=== PATIENT | female | born 1975 | race African-American/Black ===

== ENCOUNTER 2016-12-15 17:24 | Emergency (ER) | payer BC ==
[2016-12-15 18:03] VITALS: BP 138/79
--- NOTE | 2016-12-15 19:49 | UC ---
UC General HPI - HPI Summary HPI Summary: HISTORY OF RHEUMATOID ARTHRITIS. ON BIOTICS. HAS SPECIALIST IN [place] AND HERE, ALSO HAS PRIMARY CARE HERE. ACHEY PAIN RADIATES DOWN BILATERAL SHOULDERS, NO TRAUMA. HAS HAD THIS CONCERN BEFORE. WHEN THIS OCCURS AND CANNOT BE MANAGED BY PRESCRIBED MEDICATIONS, USUALLY TAKES STEROID PACK. UNABLE TO GET [facility] OF SPECIALISTS (THEY SAID THEY WOULD CALL BACK, BUT HAVENT) WOULD LIKE SHORT TERM STEROID SUPPLY. - History of Current Complaint Chief Complaint: UCGeneralIllness Stated Complaint: ARTHRITIC PAIN AND STIFFNESS Time Seen by Provider: 12/15/16 18:41 Hx Obtained From: Patient Onset/Duration: Gradual Onset, Lasting Weeks, Still Present Onset Severity: Mild Current Severity: Mild Pain Intensity: 3 Associated Signs & Symptoms: Positive: Other - BILATERAL SHOULDER AND NECK STIFFNESS AND PAIN. Negative: Back Pain, Cough - Allergy/Home Medications Allergies/Adverse Reactions: Allergies Allergy/AdvReac Type Severity Reaction Status Date / Time Iodine Allergy See Comment Verified 12/15/16 18:04 Latex Allergy See Comment Verified 12/15/16 18:04 Peanut Oil Allergy Anaphylatic Verified 12/15/16 18:04 Shock Sulfa Antibiotics Allergy See Comment Verified 12/15/16 18:04 Home Medications: Home Medications Aqohcpans-Qqmtkibrrmg-Jlmqwtv [Glucosamine Complex] 1 tab PO 12/15/16 [History] PMH/Surg Hx/FS Hx/Imm Hx Previously Healthy: Yes Endocrine History Of: Reports: Thyroid Disease - hyperthyroid Denies: Diabetes Cardiovascular History Of: Denies: Cardiac Disorders, Hypertension Respiratory History Of: Reports: Asthma Denies: COPD GI/ History Of: Denies: Ulcer - Surgical History Surgical History: Yes Surgery Procedure, Year, and Place: laparoscopy - Family History Known Family History: Positive: Cardiac Disease - Social History Occupation: Employed Full-time Lives: With Family Alcohol Use: Rare Substance Use Type: None Smoking Status (MU): Never Smoked Tobacco - Immunization History Most Recent Influenza Vaccination: fall 2015 Review of Systems Constitutional: Negative Skin: Negative Eyes: Negative ENT: Negative Respiratory: Negative Cardiovascular: Negative Gastrointestinal: Negative Genitourinary: Negative Motor: Negative Neurovascular: Negative Musculoskeletal: Arthralgia, Myalgia Neurological: Negative Psychological: Negative All Other Systems Reviewed And Are Negative: Yes Physical Exam Triage Information Reviewed: Yes Appearance: Well-Appearing, No Pain Distress, Well-Nourished Vital Signs: Initial Vital Signs Temp 98.8 F 12/15/16 17:57 Pulse 76 12/15/16 17:57 Resp 16 12/15/16 17:57 BP 138/79 12/15/16 17:57 Pulse Ox 100 12/15/16 17:57 Vital Signs Reviewed: Yes Eye Exam: Normal Eyes: Positive: Conjunctiva Clear ENT Exam: Normal ENT: Positive: Normal ENT inspection, Hearing grossly normal, Pharynx normal, TMs normal Dental Exam: Normal Neck exam: Normal Neck: Positive: Supple, Nontender, No Lymphadenopathy. Negative: Nuchal Rigidity, Tenderness @, Enlarged Nodes @ Respiratory Exam: Normal Respiratory: Positive: Chest non-tender, Lungs clear, Normal breath sounds, No respiratory distress, No accessory muscle use Cardiovascular Exam: Normal Cardiovascular: Positive: RRR, No Murmur, Pulses Normal, Brisk Capillary Refill Abdominal Exam: Normal Musculoskeletal Exam: Normal Musculoskeletal: Positive: Strength Intact, ROM Intact, No Edema Neurological Exam: Normal Psychological Exam: Normal Psychological: Positive: Normal Response To Family Skin Exam: Normal Course/Dx - Differential Dx - Multi-Symptom Differential Diagnoses: Metabolic Abnormality, Sepsis, Other - RA Provider Diagnoses: ACUTE ON CHRONIC RHEUMATOID ARTHRITIS FLARE UP/PAIN Discharge - Discharge Plan Condition: Stable Disposition: HOME Prescriptions: predniSONE TAB* [Deltasone TAB*] 10 mg PO DAILY #28 tab Patient Education Materials: Rheumatoid Arthritis (ED), Autoimmune Disease (ED) Referrals: Imer Mcintosh MD [Primary Care Provider] -
== END 2016-12-15 19:21 | disposition home or self-care (01) ==
LOC: UCEAST 17:24
DX: M06.9 Rheumatoid arthritis, unspecified (principal); M43.6 Torticollis; Z88.2 Allergy status to sulfonamides
CPT/HCPCS: 99212; G0463

== ENCOUNTER 2017-06-12 16:03 | Emergency (ER) | payer BC, OTHER ==
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
[2017-06-12 16:27] VITALS: BP 149/94
== END 2017-06-12 16:28 | disposition home or self-care (01) ==
LOC: UCEAST 16:03
DX: R10.32 Left lower quadrant pain (principal); E05.90 Thyrotoxicosis, unspecified without thyrotoxic crisis or storm; J45.909 Unspecified asthma, uncomplicated; M06.9 Rheumatoid arthritis, unspecified; Z88.2 Allergy status to sulfonamides
CPT/HCPCS: 99211; G0463

== ENCOUNTER 2017-06-12 16:49 | Emergency (ER) | payer SELFPAY ==
[2017-06-12 19:53] LABS: Urine Bacteria Absent (Absent)
[2017-06-12 20:01] LABS: Urine Bilirubin Negative (Negative); Urine Glucose Negative (Negative); Urine Nitrite Negative (Negative)
[2017-06-12 20:29] LABS: Hematocrit 32 % (35-47); Hemoglobin 10.6 g/dl (12.0-16.0); Mean Corpuscular HGB Conc 33 g/dl (31-36); Mean Corpuscular Hemoglobin 27 pg (27-31); Mean Corpuscular Volume 81 fL (80-97); Mean Platelet Volume 9 um3 (7.4-10.4); Red Blood Count 3.95 10^6/ul (4.0-5.4); Red Cell Distribution Width 14 % (10.5-15); White Blood Count 5.6 10^3/ul (3.5-10.8)
[2017-06-12 20:55] LABS: Albumin 3.7 g/dL (3.2-5.2); BUN/Creatinine Ratio 12.8 (8-20); Calcium 8.9 mg/dL (8.6-10.3); EGFR African American 94.5 (>60); EGFR Non-African American 73.5 (>60); Globulin 3.4 g/dL (2-4); Potassium 3.3 mmol/L (3.5-5.0); Total Bilirubin 0.3 mg/dL (0.2-1.0); Total Protein 7.1 g/dL (6.4-8.9)
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
[2017-06-12] MEDS ORDERED: Diclofenac Sodium EC TAB* 25 MG PO ONE (22:06)
[2017-06-12 22:49] VITALS: BP 122/78
== END 2017-06-12 22:49 | disposition home or self-care (01) ==
LOC: ED 16:49
DX: R10.32 Left lower quadrant pain (principal)
CPT/HCPCS: 36415; 74176; 80053; 81003; 85025; 99282; A9270-GY

== ENCOUNTER 2018-01-06 19:49 | Emergency (ER) | payer BC, OTHER ==
[2018-01-06 19:59] VITALS: BP 142/103
--- NOTE | 2018-01-06 20:13 | UC ---
Lower Extremity/Ankle HPI - HPI Summary HPI Summary: Patient tripped down the stairs and twisted ankle under neath her body. pain not improving over the last 2 days, mild swlling under the lateral - History of Current Complaint Chief Complaint: UCLowerExtremity Stated Complaint: ANKLE INJURY Time Seen by Provider: 01/06/18 20:07 Hx Obtained From: Patient Hx Last Menstrual Period: 3 wks ago ?: No Onset/Duration: Sudden Onset, Lasting Days Severity Initially: Moderate Severity Currently: Moderate Pain Intensity: 6 Aggravating Factor(s): Standing, Ambulation Alleviating Factor(s): Elevation, Ice Able to Bear Weight: No - Allergies/Home Medications Allergies/Adverse Reactions: Allergies Allergy/AdvReac Type Severity Reaction Status Date / Time iodine Allergy Anaphylatic Verified 01/06/18 20:00 Shock latex Allergy Itching Verified 01/06/18 20:00 peanut Allergy Anaphylatic Verified 01/06/18 20:00 Shock peanut oil Allergy Anaphylatic Verified 01/06/18 20:00 Shock Sulfa (Sulfonamide Allergy Facial Verified 01/06/18 20:01 Antibiotics) Redness/Flushing Home Medications: Home Medications Hemagenics 1 tab PO DAILY 01/06/18 [History Confirmed 01/06/18] PMH/Surg Hx/FS Hx/Imm Hx Previously Healthy: Yes - Surgical History Surgical History: Yes Surgery Procedure, Year, and Place: laparoscopy - Family History Known Family History: Positive: Cardiac Disease - Social History Alcohol Use: Rare Substance Use Type: None Smoking Status (MU): Never Smoked Tobacco - Immunization History Most Recent Influenza Vaccination: fall 2015 Review of Systems Constitutional: Negative Skin: Negative Eyes: Negative ENT: Negative Respiratory: Negative Cardiovascular: Negative Gastrointestinal: Negative Genitourinary: Negative Motor: Negative Neurovascular: Negative Musculoskeletal: Arthralgia, Decreased ROM, Edema, Myalgia Neurological: Negative Psychological: Negative Is Patient Immunocompromised?: No All Other Systems Reviewed And Are Negative: Yes Physical Exam Triage Information Reviewed: Yes Appearance: Well-Appearing, Well-Nourished, Pain Distress Vital Signs: Initial Vital Signs Temp 98.6 F 01/06/18 19:55 Pulse 76 01/06/18 19:55 Resp 18 01/06/18 19:55 BP 142/103 01/06/18 19:55 Pulse Ox 100 01/06/18 19:55 Vital Signs Reviewed: Yes Eye Exam: Normal ENT Exam: Normal Dental Exam: Normal Neck exam: Normal Respiratory Exam: Normal Cardiovascular Exam: Normal Abdominal Exam: Normal Musculoskeletal: Positive: Strength Limited @ - limping gait, ROM Limited @ - in inv and eversion, Edema @ - under the medial maleolus Neurological Exam: Normal Psychological Exam: Normal Skin Exam: Normal Lower Extremity Course/Dx - Course Course Of Treatment: hx obtained, exam performed ,meds reviewed, xray obtained neg for fracture, gel spint and asia applied. - Differential Dx/Diagnosis Differential Diagnosis/HQI/PQRI: Contusion, Fracture (Closed), Sprain, Strain Provider Diagnoses: medial left ankle sprain Discharge - Sign-Out/Discharge Documenting (check all that apply): Discharge - Discharge Plan Condition: Stable Disposition: HOME Patient Education Materials: Ankle Sprain (ED) Referrals: Imer Mcinotsh MD [Primary Care Provider] - Additional Instructions: 1. use the asia wrap and splint for swelling reduction and support. 2. elevate as much as possible. 3. work back into activity as tolerated. - Billing Disposition and Condition Condition: STABLE Disposition: HOME
--- NOTE | 2018-01-06 20:34 | RAD ---
INDICATION: Medial ankle pain since an injury 2 nights earlier COMPARISON: None. TECHNIQUE: 3 views of the left ankle were obtained. FINDINGS: The well corticated bones exhibit normal alignment. Joint spaces appear maintained. No fracture is seen. IMPRESSION: Normal ankle radiograph. If the patient's symptoms persist, follow-up imaging is recommended.
== END 2018-01-06 20:50 | disposition home or self-care (01) ==
LOC: UCEAST 19:49
DX: S93.402A Sprain of unspecified ligament of left ankle, initial encounter (principal); X50.1XXA Overexertion from prolonged static or awkward postures, initial encounter; Y93.89 Activity, other specified; Y92.9 Unspecified place or not applicable; Z88.2 Allergy status to sulfonamides
CPT/HCPCS: 99212; G0463

== ENCOUNTER 2018-01-16 16:00 | Emergency (ER) | payer BC ==
[2018-01-16 16:21] VITALS: BP 123/80
[2018-01-16] MEDS ORDERED: Ketorolac INJ* 60 MG/2 ML VIAL IM ONE (16:55)
--- NOTE | 2018-01-16 17:03 | UC ---
Upper Extremity HPI - HPI Summary HPI Summary: 42 BF h/o RA with flare-up c/o severe right hand swelling and pain x few days in spite of taking chronic prednisone and diclofenac for flare-ups - History of Current Complaint Chief Complaint: UCGeneralIllness Stated Complaint: HAND AND FOOT SWELLING, AND BACK PAIN Time Seen by Provider: 01/16/18 16:44 Hx Obtained From: Patient Hx From Patient Unobtainable Due To: Extremis Hx Last Menstrual Period: 3 wks ago Onset/Duration: Lasting Days, Still Present Severity Initially: Moderate Severity Currently: Severe Pain Intensity: 8 Character: Sharp Aggravating Factor(s): Movement Alleviating Factor(s): Nothing Associated Signs And Symptoms: Positive: Negative - Allergies/Home Medications Allergies/Adverse Reactions: Allergies Allergy/AdvReac Type Severity Reaction Status Date / Time iodine Allergy Anaphylatic Verified 01/16/18 16:21 Shock latex Allergy Itching Verified 01/16/18 16:21 peanut Allergy Anaphylatic Verified 01/16/18 16:21 Shock peanut oil Allergy Anaphylatic Verified 01/16/18 16:21 Shock Sulfa (Sulfonamide Allergy Facial Verified 01/16/18 16:21 Antibiotics) Redness/Flushing Home Medications: Home Medications Hydroxychloroquine TAB* [Plaquenil TAB*] 200 mg PO DAILY 01/16/18 [History Confirmed 01/16/18] [place]-3 Fatty Acids/Fish Oil [Fish Oil 1,000 mg Capsule] 1 each PO 01/16/18 [ History] Vit 108/Iron/Folic AC [ One Tablet] 1 each PO 01/16/18 [History ] PMH/Surg Hx/FS Hx/Imm Hx Previously Healthy: Yes - Surgical History Surgical History: Yes Surgery Procedure, Year, and Place: laparoscopy - Family History Known Family History: Positive: Cardiac Disease - Social History Alcohol Use: Occasionally Substance Use Type: None Substance Use Comment - Amount & Last Used: cbd oil Smoking Status (MU): Never Smoked Tobacco - Immunization History Most Recent Influenza Vaccination: fall 2015 Review of Systems Constitutional: Negative Skin: Negative Eyes: Negative ENT: Negative Respiratory: Negative Cardiovascular: Negative Gastrointestinal: Negative Genitourinary: Negative Motor: Negative Neurovascular: Negative Musculoskeletal: Negative, Decreased ROM, Edema - right hand Neurological: Negative Psychological: Negative All Other Systems Reviewed And Are Negative: Yes Physical Exam Triage Information Reviewed: Yes Appearance: Pain Distress Vital Signs: Initial Vital Signs Temp 36.1 C 01/16/18 16:15 Pulse 72 01/16/18 16:15 Resp 18 01/16/18 16:15 BP 123/80 01/16/18 16:15 Pulse Ox 100 01/16/18 16:15 Vital Signs Reviewed: Yes Eye Exam: Normal ENT: Positive: Normal ENT inspection Respiratory Exam: Normal Respiratory: Positive: Lungs clear Musculoskeletal Exam: Normal Musculoskeletal: Positive: Strength Limited @, ROM Limited @, Edema @ - right hand swelling extending to fingers with restricted ROM due to swelling Upper Extremity Course/Dx - Course Course Of Treatment: severe RA flare-up refractory to prednisone - Troadol IM and Zanaflex at bedtime - Differential Dx/Diagnosis Differential Diagnosis/HQI/PQRI: Arthritis Provider Diagnoses: RA flare-up. right hand swelling Discharge - Sign-Out/Discharge Documenting (check all that apply): Discharge/Admit/Transfer - Discharge Plan Condition: Stable Disposition: HOME Prescriptions: Tizanidine HCl 4 mg PO BEDTIME 10 Days #10 capsule Patient Education Materials: Rheumatoid Arthritis (ED) Referrals: Imer Mcintosh MD [Primary Care Provider] - Additional Instructions: follow up with accounts payable or receivable clerk - Billing Disposition and Condition Condition: STABLE Disposition: HOME
== END 2018-01-16 17:59 | disposition home or self-care (01) ==
LOC: UCEAST 16:00
DX: M06.9 Rheumatoid arthritis, unspecified (principal); M79.89 Other specified soft tissue disorders; Z88.2 Allergy status to sulfonamides; Z88.3 Allergy status to other anti-infective agents; Z91.040 Latex allergy status; Z91.010 Allergy to peanuts
CPT/HCPCS: 96372; 99212; G0463; J1885

== ENCOUNTER 2018-01-19 08:29 | Emergency (ER) | payer BC ==
[2018-01-19 08:36] VITALS: BP 144/105
[2018-01-19] MEDS ORDERED: predniSONE TAB* 20 MG PO ONE (09:14)
--- NOTE | 2018-01-19 09:20 | UC ---
Hand/Wrist HPI - HPI Summary HPI Summary: Patient has RA. has been on low dose prednisone for many months. decided to stop prednisone abruptly 5 days ago, and joint pain has become increasingly worse. now R hand swollen, warm and painful. has used prednisone taper in past for RA exacerbation - History Of Current Complaint Chief Complaint: UCGeneralIllness Stated Complaint: SWELLING IN HANDS Time Seen by Provider: 01/19/18 08:47 Hx Obtained From: Patient Hx Last Menstrual Period: 12/23/17 ?: No Onset/Duration: Gradual Onset Severity Initially: Mild Severity Currently: Moderate Pain Intensity: 7 Character Of Pain: Throbbing, Stiffness, Burning Aggravating Factor(s): Movement Alleviating Factor(s): Nothing Associated Signs And Symptoms: Positive: Swelling, Redness Related History: Other: - RA - Allergies/Home Medications Allergies/Adverse Reactions: Allergies Allergy/AdvReac Type Severity Reaction Status Date / Time iodine Allergy Anaphylatic Verified 01/19/18 08:40 Shock latex Allergy Itching Verified 01/19/18 08:40 peanut Allergy Anaphylatic Verified 01/19/18 08:40 Shock peanut oil Allergy Anaphylatic Verified 01/19/18 08:40 Shock Sulfa (Sulfonamide Allergy Facial Verified 01/19/18 08:40 Antibiotics) Redness/Flushing PMH/Surg Hx/FS Hx/Imm Hx Previously Healthy: Yes Respiratory History: Other - seasonal allergies Other Respiratory History: allergies - Surgical History Surgical History: Yes Surgery Procedure, Year, and Place: laparoscopy - Family History Known Family History: Positive: Cardiac Disease - Social History Alcohol Use: Occasionally Substance Use Type: None Substance Use Comment - Amount & Last Used: cbd oil Smoking Status (MU): Never Smoked Tobacco - Immunization History Most Recent Influenza Vaccination: fall 2015 Review of Systems Constitutional: Fatigue Skin: Negative Respiratory: Negative Cardiovascular: Negative Musculoskeletal: Arthralgia Neurological: Negative Psychological: Negative All Other Systems Reviewed And Are Negative: Yes Physical Exam Triage Information Reviewed: Yes Appearance: Well-Appearing, Well-Nourished, Other: - appears uncomfortable, holding R hand still, repositions frequently Vital Signs: Initial Vital Signs Temp 98 F 01/19/18 08:33 Pulse 83 01/19/18 08:33 Resp 16 01/19/18 08:33 BP 144/105 01/19/18 08:33 Pulse Ox 100 01/19/18 08:33 Vital Signs Reviewed: Yes Neck exam: Normal Neck: Positive: Supple Respiratory Exam: Normal Cardiovascular Exam: Normal Musculoskeletal: Positive: Other: - moderate swelling, redness, warmth R MCP joints, mild swelling L MCP joints Neurological Exam: Normal Neurological: Positive: Alert Psychological Exam: Normal Hand/Wrist Course/Dx - Differential Dx/Diagnosis Differential Diagnosis/HQI/PQRI: Infection, Other - RA Provider Diagnoses: rheumatoid arthritis exacerbation Discharge - Sign-Out/Discharge Documenting (check all that apply): Discharge/Admit/Transfer - Discharge Plan Condition: Stable Disposition: HOME Prescriptions: predniSONE TAB* [Deltasone TAB*] 10 mg PO DAILY #40 tab Patient Education Materials: Rheumatoid Arthritis (ED) Referrals: Imer Mcintosh MD [Primary Care Provider] - 2 Days (recheck B/P) Additional Instructions: take prednisone as prescribed with food start calcium supplement: [id number] mg a day in divided doses (with food if possible) rest and drink plenty of fluids - Billing Disposition and Condition Condition: STABLE Disposition: HOME
== END 2018-01-19 09:30 | disposition home or self-care (01) ==
LOC: UCEAST 08:29
DX: M06.9 Rheumatoid arthritis, unspecified (principal); R53.83 Other fatigue; Z88.2 Allergy status to sulfonamides; Z88.3 Allergy status to other anti-infective agents; Z91.040 Latex allergy status
CPT/HCPCS: 99211; G0463; J7512

== ENCOUNTER 2018-11-04 15:12 | Emergency (ER) | payer BC ==
[2018-11-04] MEDS ORDERED: NS 0.9% 1000 ML** 1,000 ML IV ONE (16:15)
--- NOTE | 2018-11-04 16:17 | ED ---
Influenza-Like Illness - HPI Summary HPI Summary: 42 year old female presents with flulike symptoms for the past 4 days. She admits to fever and chills. She states she has occasional chest pain or shortness breath. She states she feels winded. She denies any cough. She gets a sore throat. She has decreased appetite. She denies any bowel pain. No nausea vomiting diarrhea. She admits to generalized muscle aches. She also admits to back pain. No urinary symptoms. No headache. States she has a history of dental infections. She denies any swelling to her face. She has not followed with dentist. Has history of RA and has not been able to take her medications due to her symptoms. - History of Current Complaint Chief Complaint: EDFluSymptoms Time Seen by Provider: 11/04/18 16:01 - Allergy/Home Medications Allergies/Adverse Reactions: Allergies Allergy/AdvReac Type Severity Reaction Status Date / Time iodine Allergy Anaphylatic Verified 11/04/18 15:27 Shock latex Allergy Itching Verified 11/04/18 15:27 peanut Allergy Anaphylatic Verified 11/04/18 15:27 Shock peanut oil Allergy Anaphylatic Verified 11/04/18 15:27 Shock Sulfa (Sulfonamide Allergy Facial Verified 11/04/18 15:27 Antibiotics) Redness/Flushing PMH/Surg Hx/FS Hx/Imm Hx Endocrine/Hematology History: Reports: Hx Thyroid Disease - hyperthyroid Denies: Hx Diabetes Cardiovascular History: Denies: Hx Hypertension Respiratory History: Reports: Hx Asthma Denies: Hx Chronic Obstructive Pulmonary Disease (COPD) GI History: Denies: Hx Ulcer Neurological History: Reports: Other Neuro Impairments/Disorders - RHEUMATOID ARTHIRITIS - Surgical History Surgery Procedure, Year, and Place: laparoscopy Infectious Disease History: No Infectious Disease History: Denies: Hx Clostridium Difficile, Hx Hepatitis, Hx Human Immunodeficiency Virus (HIV), Hx of Known/Suspected MRSA, Hx Shingles, Hx Tuberculosis, Hx Known/ Suspected VRE, Hx Known/Suspected VRSA, History Other Infectious Disease, Traveled Outside the [place] in Last 30 Days - Family History Known Family History: Positive: Cardiac Disease - Social History Alcohol Use: Occasionally Substance Use Type: Reports: Other Substance Use Comment - Amount & Last Used: cbd oil Smoking Status (MU): Never Smoked Tobacco Review of Systems Positive: Fever, Chills Positive: Dental Pain, Sore Throat, Nasal Discharge Positive: Chest Pain Positive: Shortness Of Breath. Negative: Cough Negative: Abdominal Pain Positive: Myalgia - back pain All Other Systems Reviewed And Are Negative: Yes Physical Exam Triage Information Reviewed: Yes Vital Signs On Initial Exam: Initial Vitals Temp Pulse Resp BP Pulse Ox 98.1 F 99 16 129/108 99 11/04/18 15:23 11/04/18 15:23 11/04/18 15:23 11/04/18 15:23 11/04/18 15:23 Vital Signs Reviewed: Yes Appearance: Positive: Well-Appearing Skin: Positive: Warm, Dry Head/Face: Positive: Normal Head/Face Inspection Eyes: Positive: Normal, EOMI, JOYCE, Conjunctiva Clear ENT: Positive: Normal ENT inspection, Pharyngeal erythema, TMs normal, Uvula midline. Negative: Trismus, Muffled voice Dental: Positive: Gross Decay/Caries @ - throughout Neck: Positive: Supple, Nontender, No Lymphadenopathy Respiratory/Lung Sounds: Positive: Clear to Auscultation, Breath Sounds Present Cardiovascular: Positive: Normal, RRR Abdomen Description: Positive: Nontender, Soft Bowel Sounds: Positive: Present Musculoskeletal: Positive: Normal Neurological: Positive: Normal Psychiatric: Positive: Normal Diagnostics - Vital Signs Vital Signs Temp Pulse Resp BP Pulse Ox 11/04/18 15:23 98.1 F 99 16 129/108 99 - Laboratory Result Diagrams: 11/04/18 16:20 11/04/18 16:20 Lab Statement: Any lab studies that have been ordered have been reviewed, and results considered in the medical decision making process. - Radiology chest Radiology Interpretation Completed By: Radiologist Summary of Radiographic Findings: IMPRESSION: NO ACTIVE CARDIOPULMONARY DISEASE. - EKG No standard instances Cardiac Rate: NL EKG Rhythm: Sinus Rhythm Summary of EKG Findings: sinus rhythm Re-Evaluation - Re-Evaluation First Eval Re-Evaluation Time: 17:26 Change: Improved Comment: feeling better after fluids Flu Symptom Course/Dx - Course Course Of Treatment: 42 year old female presents with flulike symptoms for the past 4 days. She admits to fever and chills. She states she has occasional chest pain or shortness breath. She states she feels winded. She denies any cough. She gets a sore throat. She has decreased appetite. She denies any bowel pain. No nausea vomiting diarrhea. She admits to generalized muscle aches. She also admits to back pain. No urinary symptoms. No headache. States she has a history of dental infections. She denies any swelling to her face. She has not followed with dentist. Has history of RA and has not been able to take her medications due to her symptoms. On exam lungs clear to auscultation. Dental caries noted with no abscess noted or sign of infection. abd soft nontender. wbc normal. influenza a positive. wbc normal. electrolytes normal. discussed should follow up with dentist about teeth but no signs of infection at the moment. gave fluids and feeling better. is out of range for tamiflu. told to continue tyenlol or ibuprofen. patient understand and agrees with plan. - Diagnoses Differential Diagnosis/HQI/PQRI: Positive: Influenza, Pneumonia, Upper Respiratory Infection Provider Diagnoses: Influenza, Dental caries Discharge - Sign-Out/Discharge Documenting (check all that apply): Patient Departure Patient Received Moderate/Deep Sedation with Procedure: No - Discharge Plan Condition: Good Disposition: HOME Patient Education Materials: Influenza (ED) Forms: *Work Release Referrals: Imer Mcintosh MD [Primary Care Provider] - Additional Instructions: Take Tylenol and ibuprofen for muscle aches and fever every 6 hours Saline rinse can be used multiple times a day for nasal congestion Drink plenty of fluids Return to ED if develop any new or worsening symptoms - Billing Disposition and Condition Condition: GOOD Disposition: Home
[2018-11-04 16:29] LABS: Influenza A Molecular POSITIVE (Negative)
[2018-11-04 16:29] LABS: ABS Basophils 0 10^3/ul (0-0.2); ABS Eosinophils 0.1 10^3/ul (0-0.6); ABS Monocytes 0.7 10^3/ul (0-0.8); ABS Neutrophils 2.7 10^3/ul (1.5-7.7); ABS Nucleated RBC 0 10^3/ul; Eosinophil % 1.3 %; Hematocrit 39 % (35-47); Hemoglobin 12.9 g/dl (12.0-16.0); Lymphocyte % 22.3 %; Mean Corpuscular HGB Conc 33 g/dl (31-36); Mean Corpuscular Hemoglobin 28 pg (27-31); Mean Corpuscular Volume 83 fL (80-97); Mean Platelet Volume 8.6 fL (7.4-10.4); Nucleated Red Blood Cells % 0.2; Platelet Count 183 10^3/ul (150-450); Red Blood Count 4.68 10^6/ul (4.00-5.40); Red Cell Distribution Width 14 % (10.5-15); White Blood Count 4.6 10^3/ul (3.5-10.8)
[2018-11-04 16:56] LABS: HCG Pregnancy < 0.60 mIU/mL
[2018-11-04 17:00] LABS: ALT 8 U/L (7-52); AST 14 U/L (13-39); Albumin 3.9 g/dL (3.2-5.2); Albumin/Globulin Ratio 1.3 (1-3); Alkaline Phosphatase 35 U/L (34-104); Anion Gap 7 mmol/L (2-11); Blood Urea Nitrogen 12 mg/dL (6-24); CO2 Carbon Dioxide 27 mmol/L (22-32); Calcium 9.1 mg/dL (8.6-10.3); Chloride 102 mmol/L (101-111); EGFR African American 81.8 (>60); EGFR Non-African American 67.6 (>60); Globulin 2.9 g/dL (2-4); Glucose 82 mg/dL (70-100); Potassium 3.6 mmol/L (3.5-5.0); Sodium 136 mmol/L (135-145); Total Protein 6.8 g/dL (6.4-8.9)
[2018-11-04 17:25] VITALS: BP 132/84
[2018-11-04 17:50] LABS: Urine Appearance Clear; Urine Bilirubin Negative (Negative); Urine Blood Negative (Negative); Urine Color Yellow; Urine Glucose Negative (Negative); Urine Ketones Trace (Negative); Urine Nitrite Negative (Negative); Urine Protein Negative (Negative); Urine Specific Gravity 1.008 (1.010-1.030); Urine Urobilinogen Negative (Negative)
== END 2018-11-04 18:15 | disposition home or self-care (01) ==
LOC: ED 15:12
DX: J10.1 Influenza due to other identified influenza virus with other respiratory manifestations (principal); K02.9 Dental caries, unspecified; Z88.2 Allergy status to sulfonamides; Z88.3 Allergy status to other anti-infective agents; Z91.040 Latex allergy status; Z91.010 Allergy to peanuts
CPT/HCPCS: 36415; 71046; 80053; 81003; 84484; 84702; 85025; 93005; 99283

== ENCOUNTER 2018-12-06 08:54 | Emergency (ER) | payer BC ==
[2018-12-06] MEDS ORDERED: Hydrocortisone 1% CREAM* 30 GM TUBE TOPICAL ONE (09:11)
[2018-12-06] MEDS ORDERED: diPHENhydraMINE PO* 50 MG PO ONE (09:14)
[2018-12-06] MEDS ORDERED: diPHENhydraMINE PO* 50 MG ONE (09:16)
[2018-12-06 09:18] VITALS: BP 141/95
--- NOTE | 2018-12-06 10:40 | ED ---
Allergic Reaction/Systemic - HPI Summary HPI Summary: Patient is a 42-year-old female presenting to the ED with possible allergic reaction. Patient states she had a facial wax yesterday where the wax was too hot. This injured her face and she subsequently put a cream on it which a friend had given her. The cream had sulfa and patient states she is allergic to sulfa. She noted to some lip swelling and facial redness. Denies any throat closing, dysphagia, odynophagia, SOB or CP. She states she placed this on her face this morning, and the reaction happened immediately. She states this has not been worsening over the past several hours. - History of Current Complaint Chief Complaint: EDAllergicReaction Time Seen by Provider: 12/06/18 09:04 Hx Obtained From: Patient Hx Last Menstrual Period: 12/23/17 Onset/Duration: Sudden Onset Timing: Constant Severity Initially: Mild Severity Currently: Mild Pain Intensity: 3 Pain Scale Used: 0-10 Numeric Location: Discrete @ - Face Character: Swelling Alleviating Factor(s): Heat Associated Signs And Symptoms: Positive: Negative. Negative: Abdominal Pain, Chest Pain, Cough Wheezing, Hoarseness, Lightheadedness, Nausea, Syncope, Throat Tightening - Related Hx Possible Reaction To: Medications - Allergies/Home Medications Allergies/Adverse Reactions: Allergies Allergy/AdvReac Type Severity Reaction Status Date / Time iodine Allergy Anaphylatic Verified 12/06/18 09:00 Shock latex Allergy Itching Verified 12/06/18 09:00 peanut Allergy Anaphylatic Verified 12/06/18 09:00 Shock peanut oil Allergy Anaphylatic Verified 12/06/18 09:00 Shock Sulfa (Sulfonamide Allergy Facial Verified 12/06/18 09:00 Antibiotics) Redness/Flushing PMH/Surg Hx/FS Hx/Imm Hx Previously Healthy: Yes Endocrine/Hematology History: Reports: Hx Thyroid Disease - hyperthyroid Denies: Hx Diabetes Cardiovascular History: Denies: Hx Hypertension Respiratory History: Reports: Hx Asthma Denies: Hx Chronic Obstructive Pulmonary Disease (COPD) GI History: Denies: Hx Ulcer Neurological History: Reports: Other Neuro Impairments/Disorders - RHEUMATOID ARTHIRITIS - Surgical History Surgery Procedure, Year, and Place: laparoscopy Infectious Disease History: No Infectious Disease History: Denies: Hx Clostridium Difficile, Hx Hepatitis, Hx Human Immunodeficiency Virus (HIV), Hx of Known/Suspected MRSA, Hx Shingles, Hx Tuberculosis, Hx Known/ Suspected VRE, Hx Known/Suspected VRSA, History Other Infectious Disease, Traveled Outside the [place] in Last 30 Days - Family History Known Family History: Positive: Cardiac Disease - Social History Occupation: Employed Full-time Lives: With Family Alcohol Use: Occasionally Hx Substance Use: No Substance Use Type: Reports: None Substance Use Comment - Amount & Last Used: cbd oil Hx Tobacco Use: No Smoking Status (MU): Never Smoked Tobacco Review of Systems Constitutional: Negative Negative: Fever, Chills, Fatigue, Skin Diaphoresis Negative: Palpitations, Chest Pain Negative: Shortness Of Breath, Cough Genitourinary: Negative Positive: no symptoms reported, see HPI Positive: Other - erythema throughout Neurological: Negative All Other Systems Reviewed And Are Negative: Yes Physical Exam Triage Information Reviewed: Yes Vital Signs On Initial Exam: Initial Vitals Temp Pulse Resp BP Pulse Ox 97.6 F 97 16 143/96 100 12/06/18 08:57 12/06/18 08:57 12/06/18 08:57 12/06/18 08:57 12/06/18 08:57 Vital Signs Reviewed: Yes Appearance: Positive: Well-Appearing, Well-Nourished Skin: Positive: Warm, Skin Color Reflects Adequate Perfusion Head/Face: Positive: Normal Head/Face Inspection Eyes: Positive: EOMI, JOYCE, Conjunctiva Clear Neck: Positive: Supple, No Lymphadenopathy Respiratory/Lung Sounds: Positive: Clear to Auscultation, Breath Sounds Present Cardiovascular: Positive: RRR, Pulses are Symmetrical in both Upper and Lower Extremities Musculoskeletal: Positive: Strength/ROM Intact Neurological: Positive: Sensory/Motor Intact, Alert, Oriented to Person Place, Time, Speech Normal Psychiatric: Positive: Affect/Mood Appropriate AVPU Assessment: Alert Diagnostics - Vital Signs Vital Signs Temp Pulse Resp BP Pulse Ox 12/06/18 09:30 98 F 73 16 141/95 99 12/06/18 09:14 73 15 141/95 98 12/06/18 09:05 99 22 134/106 100 12/06/18 09:04 88 26 98 12/06/18 08:57 97.6 F 97 16 143/96 100 - Laboratory Lab Statement: Any lab studies that have been ordered have been reviewed, and results considered in the medical decision making process. Allergic Reaction Course/Dx - Course Course Of Treatment: Physical examination reveals an erythematous face with no obvious swelling to the lips. No pharyngeal erythema, airway is patent. No evidence of swelling to the neck. Lungs CTA, RRR, no wheezing noted. Patient appears stable and well. She is encouraged hydrocortisone cream for the face as well as she is given prednisone taper 4 days. - Diagnoses Provider Diagnoses: Allergic reaction Discharge - Sign-Out/Discharge Documenting (check all that apply): Patient Departure Patient Received Moderate/Deep Sedation with Procedure: No - Discharge Plan Condition: Stable Disposition: HOME Prescriptions: predniSONE TAB* [Deltasone 20 MG TAB*] 20 mg PO SEE INSTRUCTIONS #6 tab Patient Education Materials: Chemical Skin Burn (ED) Referrals: Imer Mcintosh MD [Primary Care Provider] - Additional Instructions: Use hydrocortisone cream twice daily as needed until symptoms improve or resolve Prednisone - 2 tabs today and tomorrow; 1 tab on the and 18th Benadryl 50mg twice daily - Billing Disposition and Condition Condition: STABLE Disposition: Home
== END 2018-12-06 09:30 | disposition home or self-care (01) ==
LOC: ED 08:54
DX: T78.40XA Allergy, unspecified, initial encounter (principal); X58.XXXA Exposure to other specified factors, initial encounter; Z88.2 Allergy status to sulfonamides; Z91.010 Allergy to peanuts
CPT/HCPCS: 99282; A9270-GY

== ENCOUNTER 2019-02-10 09:54 | Emergency (ER) | payer BC ==
[2019-02-10] MEDS ORDERED: Ketorolac INJ* 60 MG/2 ML VIAL IM ONE (11:03)
[2019-02-10] MEDS ORDERED: Clindamycin CAP* 150 MG PO ONE (11:15)
--- NOTE | 2019-02-10 11:26 | ED ---
Throat Pain/Nasal Congestion - HPI Summary HPI Summary: Patient is a 43-year-old female with a history of dental caries and several broken teeth throughout from chronic prednisone use secondary to rheumatoid arthritis presenting with right upper dental abscess near tooth #4 and 5. She states she has had dental abscesses in the past and they have drained spontaneously. She states she has been unable to drain this area, however would not like it drained today. She is requesting antibiotics. She is tearful on arrival due to pain. Endorses pain radiating from the right upper jaw into the right rastafarian area. She denies any fevers, sweats, chills. She denies any dysphagia or odynophagia. - History of Current Complaint Chief Complaint: EDDentalPain Time Seen by Provider: 02/10/19 10:06 Hx Obtained From: Patient Onset/Duration: Gradual Onset Severity: Severe Associated Signs And Symptoms: Positive: Negative. Negative: Dysphagia, FB Sensation, Drooling, Wheezing, Hoarseness - Epiglottits Risk Factors Epiglottis Risk Factors: Negative - Allergies/Home Medications Allergies/Adverse Reactions: Allergies Allergy/AdvReac Type Severity Reaction Status Date / Time iodine Allergy Anaphylatic Verified 02/10/19 10:03 Shock latex Allergy Itching Verified 02/10/19 10:03 peanut Allergy Anaphylatic Verified 02/10/19 10:03 Shock peanut oil Allergy Anaphylatic Verified 02/10/19 10:03 Shock Sulfa (Sulfonamide Allergy Facial Verified 02/10/19 10:03 Antibiotics) Redness/Flushing Home Medications: Home Medications Abatacept [Orencia] 1 syringe IM WEEKLY 02/10/19 [History Confirmed 02/10/19] DOXYcycline CAP(*) [DOXYcycline 100MG CAP(*)] 100 mg PO DAILY 02/10/19 [History Confirmed 02/10/19] Tizanidine HCl 4 mg PO SEE INSTRUCTIONS PRN 02/10/19 [History Confirmed 02/10/19 ] predniSONE [Prednisone 5 MG TAB] 7 mg PO DAILY 02/10/19 [History Confirmed 02/10] PMH/Surg Hx/FS Hx/Imm Hx Previously Healthy: Yes Endocrine/Hematology History: Reports: Hx Thyroid Disease - hyperthyroid Denies: Hx Diabetes Cardiovascular History: Denies: Hx Hypertension Respiratory History: Reports: Hx Asthma Denies: Hx Chronic Obstructive Pulmonary Disease (COPD) GI History: Denies: Hx Ulcer Neurological History: Reports: Other Neuro Impairments/Disorders - RHEUMATOID ARTHIRITIS - Surgical History Surgery Procedure, Year, and Place: laparoscopy - Immunization History Hx Pertussis Vaccination: No Immunizations Up to Date: Yes Infectious Disease History: No Infectious Disease History: Denies: Hx Clostridium Difficile, Hx Hepatitis, Hx Human Immunodeficiency Virus (HIV), Hx of Known/Suspected MRSA, Hx Shingles, Hx Tuberculosis, Hx Known/ Suspected VRE, Hx Known/Suspected VRSA, History Other Infectious Disease, Traveled Outside the [place] in Last 30 Days - Family History Known Family History: Positive: Cardiac Disease - Social History Occupation: Employed Full-time Lives: With Family Alcohol Use: Rare Hx Substance Use: No Substance Use Type: Reports: None Substance Use Comment - Amount & Last Used: cbd oil Hx Tobacco Use: No Smoking Status (MU): Never Smoked Tobacco Review of Systems Constitutional: Negative Negative: Fever, Chills, Fatigue, Skin Diaphoresis Positive: Dental Pain Negative: Palpitations, Chest Pain Negative: Shortness Of Breath, Cough Genitourinary: Negative Positive: no symptoms reported, see HPI Negative: Arthralgia, Myalgia Neurological: Negative Negative: Weakness All Other Systems Reviewed And Are Negative: Yes Physical Exam Triage Information Reviewed: Yes Vital Signs On Initial Exam: Initial Vitals Temp Pulse Resp BP Pulse Ox 98.5 F 81 17 138/99 99 02/10/19 10:00 02/10/19 10:00 02/10/19 10:00 02/10/19 10:00 02/10/19 10:00 Vital Signs Reviewed: Yes Appearance: Positive: No Pain Distress, Well-Nourished Skin: Positive: Warm, Skin Color Reflects Adequate Perfusion Head/Face: Positive: Normal Head/Face Inspection Eyes: Positive: EOMI, JOYCE, Conjunctiva Clear ENT: Positive: Other - dental pain with abscess to the R lateral mandible Dental: Positive: Abscess @ - right upper Neck: Positive: No Lymphadenopathy Respiratory/Lung Sounds: Positive: Clear to Auscultation, Breath Sounds Present Cardiovascular: Positive: RRR, Pulses are Symmetrical in both Upper and Lower Extremities Musculoskeletal: Positive: Normal, Strength/ROM Intact Neurological: Positive: Alert, Oriented to Person Place, Time Psychiatric: Positive: Affect/Mood Appropriate Diagnostics - Vital Signs Vital Signs Temp Pulse Resp BP Pulse Ox 02/10/19 10:00 98.5 F 81 17 138/99 99 - Laboratory Lab Statement: Any lab studies that have been ordered have been reviewed, and results considered in the medical decision making process. EENT Course/Dx - Course Course Of Treatment: Physical examination there is a dental abscess over tooth # 3 and #4 to the lateral side measuring approximately 1 cm in width. Discussed with the patient the need for an I&D. Patient declines at this time due to fear of pain. I discussed with the patient we are able to attempt a course of antibiotics as well as Toradol for pain control in the area may drain spontaneously or the patient is able to drain this herself if she feels comfortable. I've encouraged her to follow up with the [facility] in [place] (her current dental group) or follow-up with one of our dentists in the [place] area. She will need to have the majority of her teeth pulled due to cavities and broken teeth. - Diagnoses Provider Diagnoses: Dental abscess Discharge - Sign-Out/Discharge Documenting (check all that apply): Patient Departure Patient Received Moderate/Deep Sedation with Procedure: No - Discharge Plan Condition: Stable Disposition: HOME Prescriptions: Clindamycin Cap(NF) [Clindamycin Cap 300 mg Cap(NF)] 300 mg PO Q6H #28 cap Ketorolac TAB * [Toradol TAB *] 10 mg PO Q6H #16 tab Patient Education Materials: Dental Abscess (ED) Referrals: Imer Mcintosh MD [Primary Care Provider] - Additional Instructions: Please follow up with dentist as soon as possible Clindamycin four times daily x 7 days Toradol four times daily x 4 days - Billing Disposition and Condition Condition: STABLE Disposition: Home Images - Images Dental: 1 - 1.5cm abscess
[2019-02-10 11:32] VITALS: BP 140/92
== END 2019-02-10 11:30 | disposition home or self-care (01) ==
LOC: ED 09:54
DX: K04.7 Periapical abscess without sinus (principal); E05.90 Thyrotoxicosis, unspecified without thyrotoxic crisis or storm; J45.909 Unspecified asthma, uncomplicated; M06.9 Rheumatoid arthritis, unspecified; Z88.8 Allergy status to other drugs, medicaments and biological substances; Z91.040 Latex allergy status; Z88.2 Allergy status to sulfonamides; Z79.52 Long term (current) use of systemic steroids
CPT/HCPCS: 96372; 99283; A9270-GY; J1885

== ENCOUNTER 2019-10-02 10:39 | Observation (INO) | payer BC ==
[2019-10-02] MEDS ORDERED: Clindamycin 900 MG/D5W BAG(*) 900 MG/50 ML BAG IVPB ONE (11:30)
[2019-10-02] MEDS ORDERED: Scopolamine 1.5 mg* PATCH ONE (11:44)
[2019-10-02] MEDS ORDERED: Ondansetron INJ* 2 MG/ML VIAL ONE (11:44)
[2019-10-02] MEDS ORDERED: LORazepam TAB(*) 1 MG ONE (11:45)
[2019-10-02] MEDS ORDERED: diPHENhydraMINE IV* 50 MG/ML 1 ml VIAL (BENADRYL) ONE (11:45)
[2019-10-02] MEDS ORDERED: oxyCODONE SR TAB(*) 10 MG TAB.SR ONE (11:45)
[2019-10-02 12:04] LABS: ABS Lymphocytes 0.7 10^3/ul (1.0-4.8); ABS Monocytes 0.3 10^3/ul (0-0.8); ABS Neutrophils 6.7 10^3/ul (1.5-7.7); Eosinophil % 0.2 %; Hematocrit 33 % (35-47); Hemoglobin 10.8 g/dL (12.0-16.0); Lymphocyte % 8.8 %; Mean Corpuscular HGB Conc 33 g/dL (31-36); Mean Corpuscular Hemoglobin 27 pg (27-31); Mean Corpuscular Volume 81 fL (80-97); Mean Platelet Volume 8.7 fL (7.4-10.4); Platelet Count 219 10^3/uL (150-450); Red Blood Count 4.03 10^6 /uL (3.70-4.87); Red Cell Distribution Width 14 % (10-15); White Blood Count 7.6 10^3/uL (3.5-10.8)
[2019-10-02 12:12] LABS: Anion Gap 5 mmol/L (2-11); BUN/Creatinine Ratio 12.5 (8-20); Blood Urea Nitrogen 11 mg/dL (6-24); CO2 Carbon Dioxide 27 mmol/L (22-32); Calcium 8.6 mg/dL (8.6-10.3); Chloride 105 mmol/L (101-111); EGFR African American 85.7 (>60); EGFR Non-African American 70.8 (>60); Glucose 91 mg/dL (70-100); Potassium 3.3 mmol/L (3.5-5.0); Sodium 137 mmol/L (135-145)
[2019-10-02 12:27] LABS: HCG Pregnancy < 0.60 mIU/mL
[2019-10-02] MEDS ORDERED: Lidocaine 1% INJ* 10 MG/ML 30 ML SDV ONE (12:27)
[2019-10-02] MEDS ORDERED: Iodixanol 320 (CONTRAST) 100 ML SDV ONE (12:28)
[2019-10-02] MEDS ORDERED: Heparin 2 UNITS/ML IVPREMIX* 2,000 ML IV ONE (12:28)
[2019-10-02] MEDS ORDERED: Iohexol 350 (CONTRAST) 200 ML MDV IV ONE ×2 (12:28→14:40)
[2019-10-02] MEDS ORDERED: fentaNYL* 50 MCG/ML 2 ML VIAL (100 MCG VIAL) ONE ×3 (12:45→13:46)
[2019-10-02] MEDS ORDERED: Ketorolac INJ* 30 MG/ML 1 ML VIAL ONE ×2 (12:45→13:18)
[2019-10-02] MEDS ORDERED: Midazolam* 1 MG/ML 5 ML VIAL (5 MG) ONE (12:45)
[2019-10-02] MEDS ORDERED: nitroGLYCERIN DRIP* 0 MCG/0 ML BTL ONE (13:07)
[2019-10-02] MEDS ORDERED: nitroGLYCERIN DRIP* 25,000 MCG/250 ML BTL ONE (13:17)
[2019-10-02] MEDS ORDERED: Naloxone* 0.4 MG/ML 1 ML VIAL IV PUSH PRN (13:37)
[2019-10-02] MEDS ORDERED: HYDROmorphone PCA* 20 MG/20 ML PCA.SYRING PCA SCH (14:00)
[2019-10-02] MEDS ORDERED: HYDROmorphone INJ1* 1 MG/ML SYRINGE ONE (14:23)
[2019-10-02] MEDS ORDERED: HYDROmorphone PCA* 20 MG/20 ML PCA.SYRING ONE (14:43)
[2019-10-02] MEDS: NS 0.9% 1000 ML** 1,000 ML IV SCH ×2 (15:45→23:12)
[2019-10-02] MEDS ORDERED: Potassium Chlor TAB* 20 MEQ TAB.ER PO ONE (17:18)
[2019-10-02] MEDS ORDERED: Cyclobenzaprine TAB* 10 MG PO PRN (17:25)
[2019-10-02] MEDS ORDERED: Albuterol 2.5 MG/3 ML NEB.SOL* (0.083%) INH PRN (17:25)
--- NOTE | 2019-10-02 18:39 | PN ---
Progress Note - Progress Note Date of Service: 10/02/19 SOAP: Subjective: Pain rated as 4-5/10, "like really bad menstrual cramps". Transient nausea, but resolved now. Eating solid food and drinking coffee. Objective: Selected Entries 10/02/19 18:22 Temperature 98.2 F Pulse Rate 64 Respiratory 18 Rate Blood Pressure 145/94 (mmHg) Blood Pressure 111 Mean O2 Sat by Pulse 100 Oximetry NAD, AAO x 3 Abdomen is soft, minimally tender to palpation Right groin is soft, nontender Dressing is CDI 2+ pulses at right FEATHERER, pop and DPA Right leg is neuromuscular grossly intact Gutierrez bag with clear yellow urine Patient has used 1.1 mg Dilaudid HOME HEALTH BILLING SPECIALIST. Assessment: 43 year old female status post uterine fibroid arterial embolization with pain and nausea controlled. Plan: 1. Bedrest with right leg straight until 2000 hours. 2. Gutierrez DC at 1900 hours. 3. Routine post UFE IR pain & nausea control. 4. Patient encouraged to use Dilaudid HOME HEALTH BILLING SPECIALIST for pain control. 5. Will see in AM.
--- NOTE | 2019-10-02 19:04 | HP ---
CC: Dr. Mcintosh * HISTORY AND PHYSICAL: DATE OF ADMISSION: 10/02/19 PRIMARY CARE PROVIDER: None. HOME [facility] LPN: Dr. Mcintosh. CHIEF COMPLAINT: Status post uterine fibroid embolization. HISTORY OF PRESENT ILLNESS: Ms. Powers is a 43-year-old female who developed significant anemia related to uterine fibroids. She was evaluated and deemed an appropriate candidate for uterine fibroid embolization. This occurred on 06/13. The patient reportedly did well through the procedure per Dr. Olvias. At this point, the patient does complain of abdominal pain though it is tolerable with the IV pain medication that she has received. She has no nausea at this point. PAST MEDICAL HISTORY: 1. Rheumatoid arthritis. 2. Endometriosis. 3. Asthma. PAST SURGICAL HISTORY: Laparoscopy. MEDICATIONS: 1. Magnesium oxide 300 mg p.o. daily. 2. Hemagenics 1 tab p.o. daily. 3. Vitamin B12 1000 mcg p.o. daily. 4. CBD ointment 1 application topical daily p.r.n. pain. 5. Zinc 50 mg p.o. q.h.s. 6. Vitamin D3 10 drops p.o. daily. 7. Multivitamin 1 tab p.o. daily. 8. Marine collagen 2 caps p.o. daily. 9. Ascorbic acid 1000 mg p.o. daily. 10. Prednisone 5 mg p.o. daily. 11. Progesterone micronized 100 mg p.o. day 12 through 28. 12. Hydroxychloroquine 400 mg p.o. daily. 13. Garlic 1 tab p.o. daily. 14. Fluconazole 150 mg p.o. p.r.n. yeast infection. 15. Estrace cream 0.1 mg vaginal twice weekly. 16. Papaya 1 tab p.o. daily. 17. [place]-3 fatty acid 2 caps p.o. daily. 18. Probiotic 1 cap p.o. daily. 19. Flonase 2 squirts both nostrils daily. 20. Diclofenac EC 75 p.o. b.i.d. with meals. 21. Doxycycline 100 mg p.o. daily. 22. Cyclobenzaprine 10 mg p.o. t.i.d. p.r.n. spasm. 23. Orencia 125 mg subcutaneous weekly. ALLERGIES: IODINE, LATEX, PEANUT, PEANUT OIL, SHELLFISH, STRAWBERRY, SULFA and MILK. FAMILY HISTORY: Mom is , she of pneumonia, she did have a history of polysubstance abuse. Dad is living, he was born in 1951, he also has a history of polysubstance abuse. REVIEW OF SYSTEMS: A complete 11-system review of systems is obtained. Pertinent positives and negatives are as per HPI and otherwise negative. PHYSICAL EXAMINATION GENERAL: The patient is a well-developed, middle-aged female, seen lying flat in the stretcher in no acute distress. VITAL SIGNS: Blood pressure 163/98, pulse 64, respirations 15, temp 98.5, O2 sat 99% on room air. HEENT: Pupils are equal, round. Extraocular muscles are intact. Oropharynx is clear and moist. PULMONARY: Lungs are clear to auscultation bilaterally anteriorly. CARDIAC: Normal S1, S2. Regular rate and rhythm. I do not appreciate any murmurs. There is no lower extremity edema. ABDOMEN: Bowel sounds are present. Abdomen is soft, tender to palpation. MUSCULOSKELETAL: The patient moves upper extremities and left lower extremity without difficulty. Right lower extremity is being held straight due to the procedure site. NEURO: Cranial nerves II through XII are grossly intact. Sensation is intact to light touch throughout. Strength is 5/5 and symmetric in the upper extremities and left lower extremity. Right lower extremity strength is not tested at this time. PSYCH: The patient is alert. She is oriented x3. Affect appears appropriate. SKIN: Visible areas of skin are warm, dry, and without rash. LABORATORY DATA: WBC is 7.6, hemoglobin is 10.8, hematocrit 33, platelets 219. Sodium 137, potassium 3.3, chloride 105, CO2 27, BUN 11, creatinine 0.88, glucose is 91, calcium 8.6. ASSESSMENT AND PLAN: Ms. Powers is a 43-year-old female with history of uterine fibroids, endometriosis and anemia who underwent uterine fibroid embolization today with Dr. Olivas and now is being admitted for pain control. 1. Status post uterine fibroid embolization. 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 Olivas's protocol. At this point, the patient is not having any nausea, and her pain is under okay control. She is wanting to eat and the diet has been ordered. The patient will likely be able to be discharged home tomorrow. 2. Asthma. There are no signs of exacerbation. I will add p.r.n. albuterol nebulizers as needed. 3. Rheumatoid arthritis. I did discuss with Dr. Olivas and and it is okay for the patient to continue on her Plaquenil and Orencia postprocedure. I will order her Plaquenil and prednisone. 4. DVT prophylaxis. According to the Adult Thrombosis Prophylaxis Risk Factor Assessment Guide, the patient has a total risk factor score of 1 making her low risk. 5. Code status is full. TIME SPENT: Forty minutes was spent admitting this patient. [id number]/[facility] #: [id number] MARY
[2019-10-02] MEDS: Ketorolac INJ* 15 MG/ML 1 ML VIAL IV PUSH SCH (20:24)
[2019-10-02] MEDS: Ondansetron INJ* 2 MG/ML VIAL IV SCH (20:25)
[2019-10-02] MEDS ORDERED: Carboxymethylcellulose/Glyceri 10 ML OPHTH.GEL lubricant eye gel BOTH EYES SCH (23:45)
[2019-10-03] MEDS ORDERED: diPHENhydraMINE PO* 50 MG PO ONE (01:45)
[2019-10-03] MEDS: Ketorolac INJ* 15 MG/ML 1 ML VIAL IV PUSH SCH ×2 (01:57→09:58)
[2019-10-03] MEDS: Ondansetron INJ* 2 MG/ML VIAL IV SCH ×2 (02:01→09:59)
[2019-10-03] MEDS ORDERED: Melatonin 3 MG TAB PO ONE (04:22)
[2019-10-03] MEDS ORDERED: diPHENhydraMINE IV* 50 MG/ML 1 ml VIAL (BENADRYL) IV PRN (06:50)
[2019-10-03] MEDS ORDERED: Hydrocortisone 1% CREAM* 30 GM TUBE TOPICAL ONE (06:52)
--- NOTE | 2019-10-03 08:51 | PN ---
Progress Note - Progress Note Date of Service: 10/03/19 SOAP: Subjective: Pain minimal, /. + small emesis the night before, but no nausea or emesis now. Wants breakfast. Has itching diffusely. Denies CP or SOB. Denies difficulty swallowing or wheezing. + void. + ambulation without assistance. Objective: Selected Entries 10/03/19 04:06 Temperature 98.3 F Temperature Oral Source Pulse Rate 75 Respiratory 16 Rate Blood Pressure 130/79 (mmHg) Blood Pressure 96 Mean O2 Sat by Pulse 96 Oximetry NAD, AAO x 3 Sitting up and conversant, but scratching all over her body Abd and pelvis is soft, minimally tender Right groins is soft, nontender Dressing is CDI 2+ pulses readily palpable at RLE Assessment: 43 YOF POD #1 s/p Uterine Fibroid Arterial Embolization with pain and nausea well controlled, but diffuse itching. Reaction to IV Dilaudid is suspected, but patient has lengthy allergy list- both medical and environmental. Plan: 1. Transition IV to PO medications including DCing Dilaudid. 2. Steroids and Benadryl have been ordered by Hospitalists. 3. Modifications to standard outpatient medications may be indicated.
[2019-10-03] MEDS ORDERED: Ondansetron TAB* 4 MG PO SCH (09:00)
[2019-10-03] MEDS ORDERED: Lactobacillus Acidophilus* 1 TAB PO SCH (09:00)
[2019-10-03] MEDS ORDERED: Cyanocobalamin TAB* 500 MCG PO SCH (09:00)
[2019-10-03] MEDS ORDERED: Hydroxychloroquine TAB* 200 MG PO SCH (09:00)
[2019-10-03] MEDS ORDERED: Multivitamins/Minerals TAB PO SCH (09:00)
[2019-10-03] MEDS ORDERED: Ketorolac TAB * 10 MG TAB PO SCH (09:00)
[2019-10-03 11:15] LABS: % Iron Saturation 20 % (15-55); Iron 62 ug/dL (50-212); Total Iron Binding Capacity 307 mcg/dL (250-450); Transferrin 219 mg/dL (203-362)
[2019-10-03 11:32] LABS: Ferritin 56.5 ng/mL (11-307)
[2019-10-03] MEDS ORDERED: HYDROcodone/ACETAMIN 5-325 MG* 1 TAB PO PRN (11:38)
[2019-10-03] MEDS ORDERED: oxyCODONE/Acetamin 5/325 MG* TAB PO PRN ×2 (11:41→11:47)
--- NOTE | 2019-10-03 11:46 | PN ---
Progress Note - Progress Note Date of Service: 10/03/19 SOAP: Subjective: Pain rated as 2/10. Denies nausea or emesis. Itching has improved, but is not completely resolved. Patient reports she had taken PO narcotics such as Percocet and Oxycodone in the past without allergic reaction. Objective: Selected Entries 10/03/19 09:02 Temperature 98.9 F Temperature Temporal Artery Source Scan Pulse Rate 75 Respiratory 16 Rate Blood Pressure 133/81 (mmHg) Blood Pressure 98 Mean O2 Sat by Pulse 100 Oximetry NAD, AAO x 3 No visible hives Expected abdominopelvic tenderness CTAB. No wheeze. Assessment: 43 YOF POD #1 UFE with widespread itching. Itching has improved since receiving steroids & Benadryl and DCing Dilaudid ENERGY EFFICIENCY SPECIALIST. Plan: 1. Continue monitoring to ascertain resolution of itching. 2. Add Percocet 5/325 PO every 6 hours. 3. Outpatient medications as follows: Toradol 10 mg PO Q 6 hours x 3 days (Dispense #15 with one refill) AFTER Toradol is complete: Ibuprofen 400 mg PO Q 6 hours OR Naprosyn 225 mg PO Q 8 hours for 3-5 days (do not take both) Patient specifically instructed to take Diclofenac while taking either Toradol or OTC NSAIDS Percocet 5/325, take 1 or 2 tablets by mouth Q 6 hours PRN breakthrough pain (Dispense #40) Compazine 5 mg PO Q 6 hours x 7 days (Dispense #30 with one refill) Scopolamine 1.5 mg transdermal to mastoid process. On 10/05/18 at 900 AM, remove current patch, replace with new patch and wear x 3 days. Drink one cup of laxative tea daily (For example, "Smooth Move") for one week.
[2019-10-03 11:53] VITALS: BP 119/88
[2019-10-03] MEDS ORDERED: oxyCODONE/Acetamin 5/325 MG* TAB PO ONE (13:58)
--- NOTE | 2019-10-03 16:10 | DS ---
AMENDED REPORT NOW INCLUDES DESIGNATED COSIGNER DISCHARGE SUMMARY: DATE OF ADMISSION: 10/02/19 DATE OF DISCHARGE: 10/03/19 PROVIDER: Ross Ang NP ATTENDING PHYSICIAN: Dr. Kendrick.* (DICTATED BY ROSS ANG NP) PRIMARY CARE PROVIDER: None. CHIEF REVENUE OFFICER: Dr. Mcintosh. PRIMARY DIAGNOSIS: Uterine fibroid embolization. SECONDARY DIAGNOSES: 1. Rheumatoid arthritis. 2. Endometriosis. 3. Asthma. PROCEDURE: On 10/02/19, the patient underwent uterine fibroid embolization. DIAGNOSTIC STUDIES/LAB DATA: Diagnostic studies: None. Pertinent lab data: Hemoglobin 10.8, hematocrit 33. Potassium 3.3. Iron 62, TIBC 307, percent saturation 20, unsat iron binding less than 292, transferrin 219, ferritin 56.5, vitamin B12 879. HISTORY OF PRESENT ILLNESS/HOSPITAL COURSE: This is a 43-year-old female with a past medical history significant for rheumatoid arthritis, endometriosis and asthma, who was admitted on 10/02/19 for an elective uterine fibroid embolization after developing significant anemia related to uterine fibroids. Directly after her procedure, it was noted that she had significant hypertension as high as 176/116; however, those numbers quickly came back down to 130s to 140s over 70s to 80s and have remained there through the rest of her stay. Her stay here was relatively uneventful except for early this morning she developed itchiness and diffuse red raised rash to her back and her face after using her Dilaudid REGISTERED NURSE CARDIAC. The patient received Benadryl and hydrocortisone cream, which made the itching significantly better; however, when I assessed her this morning she was still scratching on all surfaces of her body. The only remaining rash was a few small red raised areas to her face; however, she stated she was feeling better. Because the patient had previously had oxycodone and tolerated it well, I opted to give her Percocet versus [place]. Pain was well controlled with the mixture of the Percocet and Toradol. Denied any nausea this morning and felt like she was ready to go home. REVIEW OF SYSTEMS: An 11-point system review was performed, which was positive for diffuse abdominal tenderness, generalized pruritus and rash to the face. Otherwise, negative for chest pain, palpitations, shortness of breath, nausea, vomiting, or issues moving her bowels or her bladder. PHYSICAL EXAMINATION: Vital Signs: 99 temp, 70 pulse, 16 resps, 100% oxygen on room air, 119/88 blood pressure. General: This is a well-developed woman seen sitting up in bed, in mild distress due to her itching. HEENT: Conjunctivae pink and moist. PERRLA. EOMs intact. Oropharynx clear. Mucous membranes moist. Neck is supple. Cardiac: S1, S2 present. Heart rate regular. No murmurs, gallops, or rubs appreciated. Lung sounds clear throughout bilaterally on room air. Abdomen is soft, slightly distended, tender throughout, but positive bowel sounds x4. Musculoskeletal: Able to move all extremities. No clubbing or cyanosis of the digits. Skin: Diffuse red raised rash to bilateral cheeks that is fading. Right groin access site dressing is clean, dry, and intact with no masses, lumps, or bruising underneath the dressing. Neurological: Sensation intact to light touch throughout. No focal deficits appreciated. Psych: Alert and oriented x4. Thought content organized. DISCHARGE PLAN: She may have a regular diet. Activity is as tolerated, though she is to avoid strenuous exercise and activity for 1 week. She is able to resume her showering, though avoid tub bath, hot tubs or swimming for 1 week. She can slowly increase her activity within the first week. She should have pelvic rest for 4 weeks and avoid vaginal intercourse and tampon use and to not drive until she is no longer taking her narcotic pain medication. She is to return to the hospital should she notice any swelling or active bleeding from the right groin puncture site or if she develops uncontrollable nausea or vomiting or pain not controlled with the pain medications provided. PLAN FOR EACH CONDITION: 1. Uterine fibroid embolization. She is to have full pelvic rest for 4 weeks with no vaginal intercourse or tampon use. She is to take Toradol 10 mg orally every 6 hours for the next 3 days for pain and after that is complete to take either ibuprofen 400 mg orally every 6 hours or Naprosyn 225 mg orally every 8 hours for 3 to 5 days, but to not take both. It is okay for her to use her Voltaren with these medications. She is also to take Compazine 5 mg orally every 6 hours for 7 days for nausea and on Sunday she is to remove her current scopolamine patch and replace the new one behind the opposite ear and it is suggested she drink 1 cup of laxative tea daily for 1 week. Percocet was prescribed for more severe pain. Checked the Prescription Monitoring Program, reference #[id number] prior to ordering medication, has had no other narcotics prescribed. 2. Rheumatoid arthritis. She is to continue her prednisone and Plaquenil. She can continue her Voltaren gel. 3. Vitamin B12 deficiency. She is to continue her vitamin B12 orally daily. 4. Allergic reaction likely to Dilaudid REGISTERED NURSE CARDIAC. She can continue the Benadryl 25 mg every 6 hours as needed for itching and rash and to use the hydrocortisone 1 % cream twice a day for the next week to help with topical symptoms. MEDICATIONS TO CONTINUE UPON DISCHARGE: 1. Magnesium oxide 300 mg p.o. daily. 2. Hemagenics 1 tab p.o. daily. 3. Vitamin B12 1000 mcg p.o. daily. 4. CBD ointment topically daily as needed. 5. Zinc 50 mg p.o. at bedtime. 6. Vitamin D3 10 drops p.o. daily. 7. Multivitamin 1 tab p.o. daily. 8. Marine Collagen 2 caps p.o. daily. 9. Ascorbic acid 1000 mg p.o. daily. 10. Prednisone 5 mg p.o. daily. 11. Progesterone micronized 100 mg p.o., see instructions. 12. Hydroxychloroquine 400 mg p.o. daily. 13. Garlic 1 tab p.o. daily. 14. Estradiol 0.1 mg vaginally as needed. 15. Papaya 1 tab p.o. daily. 16. [place]-3 fatty acids 2 tabs p.o. q.a.m. 17. Probiotic 1 cap p.o. daily. 18. Fluticasone 2 sprays both nares daily. 19. Diclofenac sodium tab 25 mg p.o. b.i.d. with meals. 20. Doxycycline 100 mg p.o. daily. 21. Flexeril 10 mg p.o. t.i.d. p.r.n. 22. Orencia 1 syringe subcu weekly. 23. Percocet 1 to 2 tabs p.o. q.6 hours p.r.n., max daily dose 8. 24. Scopolamine 1.5 mg patch 1 transdermally q.72 hours. 25. Prochlorperazine 5 mg p.o. q.6 hours. 26. Ketorolac 10 mg p.o. q.6 hours. 27. Hydrocortisone 1% cream 1 application topically b.i.d. CONDITION UPON DISCHARGE: Stable. DISPOSITION: To home. TIME SPENT: Time spent on the patient is about 60 minutes with half of that spent [id number]. ROSS ANG, PIGMENT AND LACQUER MIXER [id number]/[facility] #: [id number] [facility]
== END 2019-10-03 14:30 | disposition home or self-care (01) ==
LOC: CHICATH 10:39 → SSU 17:17
PROVIDERS: ADMIT Hospitalist; ATTEND Internal Medicine
DX: N92.4 Excessive bleeding in the premenopausal period (principal); R10.2 Pelvic and perineal pain; D25.9 Leiomyoma of uterus, unspecified; M06.9 Rheumatoid arthritis, unspecified; N80.9 Endometriosis, unspecified; J45.909 Unspecified asthma, uncomplicated; Z79.899 Other long term (current) drug therapy
CPT/HCPCS: 36415; 37243; 75736; 76937; 80048; 82607; 82608; 82728; 83540; 83550; 84702; 85025; 96374; 96375; 96376; 99156; 99157; A9270-GY; C1769; C1884; C1887; C1894; G0378; J1170; J1200; J1644; J1885; J2250; J2405; J3010; J7512